=== PATIENT | female | born 1960 | race Caucasian/White ===

== ENCOUNTER 2018-12-01 13:27 | Emergency (ER) | payer BC, OTHER ==
[~2018-12-01] VITALS: Ht 177.8 cm; Wt 111.1 kg
--- NOTE | 2018-12-01 13:38 | ED Back Pain ---
General Stated Complaint: BACK PAIN; NAUSEA Source of Information: Patient, RN Notes Reviewed, Spouse Exam Limitations: No Limitations History of Present Illness Date Seen by Provider: Dec 01, 2018 Time Seen by Provider: 13:37 Initial Comments Patient presents to the Ed c/ c/o worsening LBP since yesterday afternoon. States it started while she was sitting @ her desk working on some of her husbands medicare forms. No previous similar episodes. No known injury, or trauma. Worse c/ movement. No known fever. (+) nausea c/ aggravation of her pain. No radiation down her legs, but does radiate to B/L lateral iliac crest area. Location: Lumbar Spine Timing/Duration: 1 Day Severity: Moderate (11/27) Pain/Injury Location: Back Radiation: Other (B/L lateral iliac crest area) Method of Injury: Unknown Modifying Factors: Worse With Movement; Improves With Rest Associated Symptoms: denies symptoms (x/ as noted.), lower back pain Allergies and Home Medications Allergies Coded Allergies: No Known Drug Allergies (Unverified , 12/01/18) Home Medications Dexamethasone 4 Mg Tablet, 12 MG PO ONCE Prescribed by: TYLER GIANG on 12/01/18 1459 Hydrocodone Bit/Acetaminophen 1 Ea Tablet, 1 EACH PO Q6H PRN for LBP Prescribed by: TYLER GIANG on 12/01/18 1459 Methocarbamol 750 Mg Tablet, 1,500 MG PO QID Prescribed by: TYLER GIANG on 12/01/18 1459 Patient Home Medication List Home Medication List Reviewed: Yes Review of Systems Constitutional: see HPI Gastrointestinal: see HPI, nausea : No Musculoskeletal: see HPI, back pain (low) All Other Systems Reviewed Negative Unless Noted: Yes (Negative excepted noted.) Physical Exam Vital Signs Vital Signs - First Documented 12/01/18 13:40 Temp 97.0 Pulse 79 Resp 18 B/P (MAP) 121/80 (94) Pulse Ox 95 O2 Delivery Room Air Capillary Refill : Height, Weight, BMI Height: '" Weight: lbs. oz. kg; BMI Method: General Appearance: WD/WN, Mild Distress, Obese Cardiovascular: Regular Rate, Rhythm Respiratory: No Respiratory Distress Back: Decreased Range of Motion (lumbar spine), Muscle Spasm (lumbar), Other (increased pain c/ BLE leg raising.) Neurologic/Psychiatric: Alert, Oriented x3, No Motor/Sensory Deficits, Normal Mood/Affect Skin: Warm/Dry; No Rash Progress/Results/Core Measures Results/Orders Lab Results Laboratory Tests Test 12/01/18 14:35 Range/Units Urine Color YELLOW Urine Clarity CLEAR Urine pH 5.5 5-9 Urine Specific [place] >=1.030 1.016-1.022 Urine Protein NEGATIVE NEGATIVE Urine Glucose (UA) NEGATIVE NEGATIVE Urine Ketones NEGATIVE NEGATIVE Urine Nitrite NEGATIVE NEGATIVE Urine Bilirubin NEGATIVE NEGATIVE Urine Urobilinogen NORMAL NORMAL MG/DL Urine Leukocyte Esterase NEGATIVE NEGATIVE Urine RBC (Auto) NEGATIVE NEGATIVE Urine RBC NONE /HPF Urine WBC NONE /HPF Urine Squamous Epithelial Cells 25-50 H /HPF Urine Crystals NONE /LPF Urine Bacteria FEW H /HPF Urine Casts NONE /LPF Urine Mucus NEGATIVE /LPF Urine Culture Indicated NO My Orders Orders - TYLER GIANG DO Ua Culture If Indicated (12/01/18 13:28) Ct Lumbar Spine Wo (12/01/18 13:57) Ondansetron Oral Dissolve Tab (Zofran (12/01/18 13:57) Ketorolac Injection (Toradol Injection) (12/01/18 14:00) Medications Given in ED Current Medications Medications Dose Ordered Sig/James Route Start Time Stop Time Status Last Admin Dose Admin Ketorolac Tromethamine 15 mg ONCE ONCE IM 12/01/18 14:00 12/01/18 14:01 DC 12/01/18 14:07 15 MG Vital Signs/I&O 12/01/18 12/01/18 13:40 15:13 Temp 97.0 97.0 Pulse 79 68 Resp 18 18 B/P (MAP) 121/80 (94) 111/60 (77) Pulse Ox 95 95 O2 Delivery Room Air Room Air Progress Progress Note : Progress Note Pain some improved p/ the Toradol. Diagnostic Imaging Diagonstic Imaging: CT Plain Films/CT/US/NM/MRI: other (L-spine negative for anything acute) Departure Impression Primary Impression: Low back pain Additional Impression: Mild degenerative lumbar spine changes Disposition: 01 HOME, SELF-CARE Condition: Improved Departure-Patient Inst. Decision time for Depature: 14:56 [place]: [facility] [place]ructions: Low Back Pain (DC) Add. Discharge Instructions: RECOMMEND 400 mg OF IBUPROFEN EVERY 6 HOURS AND MAY ADD 650 mg OF TYLENOL EVERY 6 HOURS IF NEEDED FOR YOUR BACK PAIN. USE THE PRESCRIPTION PAIN RELIEVER FOR UNCONTROLLED PAIN. Scripts Hydrocodone Bit/Acetaminophen (LORTAB 7.5 MG TABLET) 1 Ea Tablet 1 EACH PO Q6H PRN for LBP, #14 TAB 0 Refills Prov: TYLER GIANG DO 12/01/18 Methocarbamol (Robaxin-750) 750 Mg Tablet 1500 MG PO QID for low back spasm/pain, #60 TAB 0 Refills Prov: TYLER GIANG DO 12/01/18 Dexamethasone (Decadron) 4 Mg Tablet 12 MG PO ONCE, #3 TAB 0 Refills Prov: TYLER GIANG DO 12/01/18 TYLER GIANG DO Dec 01, 2018 13:38
[2018-12-01] MEDS ORDERED: ONDANSETRON 4 MG (ZOFRAN) ORAL DISSOLVE TAB PO STA (13:57)
[2018-12-01] MEDS ORDERED: KETOROLAC 30 MG/ML VIAL IM ONE (14:00)
--- OUTSIDE RECORDS SUMMARY | 2018-12-01 14:14 | XMS REPORT | Continuity of Care Document ---
Author Organization Unknown Address Unknown Allergies There is no data. Medications There is no data. Problems There is no data. Procedures There is no data. Results Test Result Range CULTURE, THROAT - 10/08/18 11:20 CULTURE, THROAT SEE NOTE NRG Encounters ACCT No. Visit Date/Time Discharge Status Pt. Type Provider Facility Loc./Unit Complaint [id number] 10/08/2018 11:30:00 10/08/2018 23:59:59 [facility] Outpatient FRANKIE SOMMER [facility] [id number] 10/08/2018 11:30:00 Document Registration
--- NOTE | 2018-12-01 14:39 | Diagnostic Imaging Report ---
PROCEDURE: CT lumbar spine without contrast. TECHNIQUE: Multiple contiguous axial images were obtained through the lumbar spine without the use of intravenous contrast. Sagittal and coronal reformations were then performed. Auto Exposure Controls were utilized during the CT exam to meet ALARA standards for radiation dose reduction. INDICATION: Low back pain. No known injury or trauma. COMPARISON: None FINDINGS: No acute fracture is seen in the lumbar spine. Alignment is normal. There is no spondylolisthesis. There are mild degenerative changes at L2-L3. The soft tissues about the lumbar spine demonstrate no acute abnormality. Soft tissue contents of the spinal canal are not well evaluated by CT, but no bony fragments or hyperdense fluid collections are seen. IMPRESSION: 1. Mild degenerative changes in the lumbar spine with no acute osseous abnormality seen. Dictated by: Dictated on workstation # [id number]
[2018-12-01 14:42] LABS: CLARITY,URINE CLEAR; COLOR,URINE YELLOW; PH,URINE 5.5 (5-9)
[2018-12-01 14:43] LABS: BACTERIA,URINE FEW /HPF; BILIRUBIN,URINE NEGATIVE (NEGATIVE); GLUCOSE, URINE (UA) NEGATIVE (NEGATIVE); KETONES,URINE NEGATIVE (NEGATIVE); LEUKOCYTE ESTERASE ,URINE NEGATIVE (NEGATIVE); NITRITE,URINE NEGATIVE (NEGATIVE); PROTEIN,URINE NEGATIVE (NEGATIVE); SQUAMOUS EPITHELIAL CELL,UR 25-50 /HPF; UROBILINOGEN,URINE NORMAL (NORMAL)
[2018-12-01] MEDS ORDERED: METH-313 PO (14:59)
[2018-12-01] MEDS ORDERED: DEXA4TAB66 PO (14:59)
[2018-12-01] MEDS ORDERED: HYDR-34 PO (14:59)
[2018-12-01 15:13] VITALS: BP 111/60
== END 2018-12-01 15:22 | disposition home or self-care (01) ==
LOC: ER FS 13:29
DX: M51.36 Other intervertebral disc degeneration, lumbar region (principal); X50.1XXA Overexertion from prolonged static or awkward postures, initial encounter
CPT/HCPCS: 72131; 81000; 96372

== ENCOUNTER → 2019-04-02 | Outpatient (CLI) | payer BC ==
[~2019-04-02] MED LIST: DEXA4TAB66 PO; HYDR-34 PO; METH-313 PO
--- NOTE | 2019-04-02 12:35 | Diagnostic Imaging Report ---
INDICATION: Cervicalgia. COMPARISON: None FINDINGS: Frontal, lateral, and odontoid views of the cervical spine were submitted. The cervical spine is visualized up to the C7/T1 level on the lateral projection. There is normal vertebral height and alignment. There is no evidence of fracture or bone destruction. No prevertebral soft tissue swelling is seen. Minimal multilevel degenerative changes are noted. The open-mouth view demonstrates normal C1-C2 alignment. IMPRESSION: 1. Normal cervical spine series. Dictated by: Dictated on workstation # [id number]
--- NOTE | 2019-04-02 12:36 | Diagnostic Imaging Report ---
INDICATION: Bilateral knee pain. COMPARISON: None. FINDINGS: Multiple radiographic views of the bilateral knees were obtained and show no fractures, dislocations, or other acute bony abnormalities. Joint spaces are well maintained throughout. The soft tissues appear unremarkable. No radiopaque foreign bodies are identified. IMPRESSION: Unremarkable radiographic exam of the bilateral knees. Dictated by: Dictated on workstation # [id number]
== END ==
LOC: RAD FS 12:02
PROVIDERS: ATTEND Nurse Practitioner
DX: M54.2 Cervicalgia (principal); M25.561 Pain in right knee; M25.562 Pain in left knee
CPT/HCPCS: 72040